=== PATIENT | female | born 1990 | race Two or more races ===

== ENCOUNTER 2020-10-10 14:23 | Emergency (ER) | payer SELFPAY ==
[~2020-10-10] VITALS: Ht 172.7 cm; Wt 61.0 kg
[2020-10-10 15:15] VITALS: BP 122/69
[2020-10-10] MEDS ORDERED: NEOM10DR32 AS (15:52)
--- NOTE | 2020-10-10 15:53 | PHYS DOC ---
Past Medical History Past Medical History: No Pertinent History (ALIE WEBB DO) Past Surgical History: No Surgical History (BOB ALDANA APRN) Past Surgical History: No Surgical History (ALIE WEBB DO) General Adult EDM: Chief Complaint: EARACHE/EAR PAIN HPI: HPI: Patient is a 29 year old female who presents with bug in the left ear that came in today. Patient rates her pain at 5 out of 10. She states she can hear moving. She denies any past medical history. Patient is Armenian-speaking and sisters in the room translating. (BOB ALDANA SHOE HANDLER) Review of Systems: Review of Systems: Constitutional: Denies fever or chills. [] Eyes: Denies change in visual acuity. [] HENT: Denies nasal congestion or sore throat. + Left ear pain [] Respiratory: Denies cough or shortness of breath. [] Cardiovascular: Denies chest pain or edema. [] GI: Denies abdominal pain, nausea, vomiting, bloody stools or diarrhea. [] : Denies dysuria. [] Musculoskeletal: Denies back pain or joint pain. [] Integument: Denies rash. [] Neurologic: Denies headache, focal weakness or sensory changes. [] Endocrine: Denies polyuria or polydipsia. [] Lymphatic: Denies swollen glands. [] Psychiatric: Denies depression or anxiety. [] (BOB ALDANA APRN) Heart Score: C/O Chest Pain: No Risk Factors: Risk Factors: DM, Current or recent (<one month) smoker, HTN, HLP, family history of CAD, obesity. Risk Scores: Score 0 - 3: 2.5% MACE over next 6 weeks - Discharge Home Score 4 - 6: 20.3% MACE over next 6 weeks - Admit for Clinical Observation Score 7 - 10: 72.7% MACE over next 6 weeks - Early Invasive Strategies (BOB ALDANA APRN) Allergies: Allergies: Allergies Coded Allergies Type Severity Reaction Last Updated Verified No Known Drug Allergies 10/10/20 No (BOB ALDANA APRN) Physical Exam: PE: Constitutional: Well developed, well nourished, no acute distress, non-toxic appearance. [] HENT: Normocephalic, atraumatic, bilateral external ears normal, oropharynx moist, no oral exudates, nose normal. Bug in left ear. [] Eyes: PERRLA, EOMI, conjunctiva normal, no discharge. [] Neck: Normal range of motion, no tenderness, supple, no stridor. [] Cardiovascular:Heart rate regular rhythm, no murmur [] Lungs & Thorax: Bilateral breath sounds clear to auscultation [] Abdomen: Bowel sounds normal, soft, no tenderness, no masses, no pulsatile masses. [] Skin: Warm, dry, no erythema, no rash. [] Back: No tenderness, no CVA tenderness. [] Extremities: No tenderness, no cyanosis, no clubbing, ROM intact, no edema. [] Neurologic: Alert and oriented X 3, normal motor function, normal sensory function, no focal deficits noted. [] Psychologic: Affect normal, judgement normal, mood normal. [] (BOB ALDANA APRN) Current Patient Data: Vital Signs: Vital Signs Date Time Temp Pulse Resp B/P (MAP) Pulse Ox O2 Delivery O2 Flow Rate FiO2 10/10/20 15:15 98.5 75 16 122/69 99 Room Air 98.5 (BOB ALDANA APRN) EKG: EKG: [] (BOB ALDANA APRN) Radiology/Procedures: Radiology/Procedures: [] (BOB ALDANA APRN) Course & Med Decision Making: Course & Med Decision Making Pertinent Labs and Imaging studies reviewed. (See chart for details) See HPI. Alert and oriented x4. Ambulatory steady gait. Speaks in full clear sentences. Ears flushed. Viscous lidocaine is put in the ear and then the ear is flushed and the bug came out. Patient tolerated well. She is placed on antibiotic. tympanic intact. [] (BOB ALDANA APRN) Dragon Disclaimer: Dragon Disclaimer: This electronic medical record was generated, in whole or in part, using a voice recognition dictation system. (BOB ALDANA APRN) Departure Departure Impression: Primary Impression: Ear foreign body Qualified Codes: T16.2XXA - Foreign body in left ear, initial encounter Disposition: HOME / SELF CARE / HOMELESS Condition: STABLE Patient Instructions: Ear Foreign Body Additional Instructions: Follow-up with primary care provider. Use medication as prescribed. Scripts Neomycin/Polymyxin B Sulf/Hc ([id number] EAR SUSP) 10 Ml Drops.susp 4 DROP TID for 5 Days, #10 ML 0 Refills Prov: BOB ALDANA SHOE HANDLER 10/10/20 Attending Signature Attending Signature I have reviewed the PA/CLIENT SERVICES ACCOUNT MANAGER's note and plan of care. I was available for consultation as needed during the patient's visit in the emergency department. I agree with the clinical impression, plan, and disposition. (ALIE WEBB DO) BOB ALDANA APRN Oct 10, 2020 15:53 ALIE WEBB DO Oct 11, 2020 07:08
[2020-10-10] MEDS ORDERED: LIDOCAINE 2% VISCOUS 15 ML SOLUTION. SWSW ONE (16:00)
== END 2020-10-10 17:33 | disposition home or self-care (01) ==
LOC: ER 14:23
DX: T16.2XXA Foreign body in left ear, initial encounter (principal); X58.XXXA Exposure to other specified factors, initial encounter; Y93.89 Activity, other specified; Y92.89 Other specified places as the place of occurrence of the external cause; Y99.8 Other external cause status
CPT/HCPCS: 99284